=== PATIENT | male | born 1965 | race Caucasian/White ===

== ENCOUNTER → 2016-06-22 | Outpatient (CLI) | payer BC ==
[~2016-06-22] MED LIST: ACULAR 3 ML3 M1 OP; LIORESAL10 MG PO; MOBIC15 MG PO; TOBREX OPHTH S2.5 ML OPH; VICODIN 5/500 505 MG PO; VOLTAREN50 M1 PO
== END | disposition home or self-care (01) ==
LOC: US 13:47
DX: N50.3 Cyst of epididymis (principal); N50.812 Left testicular pain; N50.811 Right testicular pain; N50.89 Other specified disorders of the male genital organs

== ENCOUNTER → 2019-05-16 | Outpatient (CLI) | payer BC | END | disposition home or self-care (01) | LOC: RAD 16:11 | DX: Z01.818 Encounter for other preprocedural examination (principal); M40.30 Flatback syndrome, site unspecified; R58 Hemorrhage, not elsewhere classified ==

== ENCOUNTER → 2021-04-29 | Outpatient (CLI) | payer BC | END | disposition home or self-care (01) | LOC: COVID19 15:54 | PROVIDERS: ATTEND Internal Medicine | DX: Z11.52 Encounter for screening for COVID-19 (principal) ==